=== PATIENT | male | born 1965 | race Caucasian/White ===

== ENCOUNTER 2021-03-05 21:17 | Emergency (ER) | payer MEDICARE | END 2021-03-05 21:30 | disposition left against medical advice (07) | LOC: ER 21:17 | DX: H92.09 Otalgia, unspecified ear (principal); Z53.21 Procedure and treatment not carried out due to patient leaving prior to being seen by health care provider ==

== ENCOUNTER 2021-09-18 19:01 | Emergency (ER) | payer MEDICARE ==
[~2021-09-18] VITALS: Ht 193 cm; Wt 130.0 kg
[2021-09-18 19:15] VITALS: BP 168/97
--- NOTE | 2021-09-18 19:23 | PHYS DOC ---
General Adult EDM: Chief Complaint: FOREIGN BODY HPI: HPI: ".. I got a big pice of steak stuck in my esophagus.. about 0900 Am.. eating at the [employer] restaurant,.,, I can even swallow my spit..." Patient is a 55 year old male who presents with above hx and complaints food bolus since 9 AM. Advised patient we did not have GI on-call at our hospital. Patient elected not to have any labs drawn or be transferred. Patient states he would just drive to the nearest hospital and has GI pony edger. Patient in [facility] visiting his mother. Patient has no respiratory distress. Was given a map and left before formal discharge. Patient refused labs, x-rays and transport to hospital that has GI services. Review of Systems: Review of Systems: Constitutional: Denies fever or chills Eyes: Denies change in visual acuity HENT: Denies nasal congestion or sore throat Respiratory: Denies cough or shortness of breath Cardiovascular: Denies chest pain or edema GI: Denies abdominal pain, nausea, vomiting, bloody stools or diarrhea . Complains of steak stuck in his esophagus : Denies dysuria Musculoskeletal: Denies back pain or joint pain Integument: Denies rash Neurologic: Denies headache, focal weakness or sensory changes Endocrine: Denies polyuria or polydipsia Lymphatic: Denies swollen glands Psychiatric: Denies depression or anxiety Family History: Family History: Noncontributory to presentation Current Medications: Current Meds: See nursing for home meds Allergies: Allergies: Allergic to Tylenol and oxycodone Physical Exam: PE: Constitutional: Moderate acute distress, non-toxic appearance. [] HENT: Normocephalic, atraumatic, bilateral external ears normal, oropharynx moist, no oral exudates, nose normal. Spitting saliva Eyes: PERRLA, EOMI, conjunctiva normal, no discharge. [] Neck: Normal range of motion, no tenderness, supple, no stridor. [] Cardiovascular:Heart rate regular rhythm, no murmur [] PMI slightly to the left Lungs & Thorax: Bilateral breath sounds clear to auscultation [] Abdomen: Bowel sounds normal, soft, no tenderness, no masses, no pulsatile masses. Obese Skin: Warm, dry, no erythema, no rash. [] Back: No tenderness, no CVA tenderness. [] Extremities: No tenderness, no cyanosis, no clubbing, ROM intact, no edema. [] Neurologic: Alert and oriented X 3, normal motor function, normal sensory function, no focal deficits noted. [] Psychologic: Affect anxious, judgement normal, mood normal. [] EKG: EKG: Refused by patient [] Radiology/Procedures: Radiology/Procedures: Refused x-rays by patient [] Heart Score: C/O Chest Pain: Yes Risk Factors: Risk Factors: DM, Current or recent (<one month) smoker, HTN, HLP, family history of CAD, obesity. Risk Scores: Score 0 - 3: 2.5% MACE over next 6 weeks - Discharge Home Score 4 - 6: 20.3% MACE over next 6 weeks - Admit for Clinical Observation Score 7 - 10: 72.7% MACE over next 6 weeks - Early Invasive Strategies Refused labs or x-rays or EKG Course & Med Decision Making: Course & Med Decision Making Pertinent Labs and Imaging studies reviewed. (See chart for details) Patient refused work-up. States he will drive himself to [facility] and since has been driving himself all day around the city. Advised patient not to eat or drink. Patient exhibits UCAR capacity- states he is aware of risks . Pt given map, and location PMC placed in his mother phone. Impression: 1. Steak food bolus [Note there may be loss of information. See Ticket [id number]. ] Dragon Disclaimer: Dragon Disclaimer: This electronic medical record was generated, in whole or in part, using a voice recognition dictation system. Departure Departure: Referrals: PCP,NO (PCP) Dragon Disclaimer This chart was dictated in whole or in part using Voice Recognition software in a busy, high-work load, and often noisy Emergency Department environment. It may contain unintended and wholly unrecognized errors or omissions. LON MARTINEZ MD Sep 18, 2021 19:23
[2021-09-18] MEDS ORDERED: KETOROLAC 30 MG/ML VIAL. IVP ONE (19:30)
[2021-09-18] MEDS ORDERED: IV RINGERS SOLUTION,LACTATED 1,000 ML IV SCH (19:30)
[2021-09-18] MEDS ORDERED: ONDANSETRON PF 4 MG/2 ML VIAL. IVP ONE (19:30)
[2021-09-18] MEDS ORDERED: FAMOTIDINE 20 MG/2 ML VIAL IVP ONE (19:30)
== END 2021-09-18 19:43 | disposition short-term general hospital (02) ==
LOC: ER 19:01
DX: T18.128A Food in esophagus causing other injury, initial encounter (principal); Z88.8 Allergy status to other drugs, medicaments and biological substances; X58.XXXA Exposure to other specified factors, initial encounter; Y93.89 Activity, other specified; Y92.89 Other specified places as the place of occurrence of the external cause; Y99.8 Other external cause status
CPT/HCPCS: 99285